=== PATIENT | male | born 1990 | race Caucasian/White ===

== ENCOUNTER 2018-02-15 08:51 | Emergency (ER) | payer MEDICAID, MEDICARE ==
[2018-02-15 09:11] VITALS: BP 130/75
--- NOTE | 2018-02-15 09:40 | RAD ---
INDICATION: Posterior RIGHT elbow pain and swelling post fall yesterday. COMPARISON: No relevant prior exams available on the [facility] for comparison. TECHNIQUE: AP, lateral, and oblique views RIGHT elbow. REPORT: Displaced fat pads indicating joint effusion. Mildly comminuted and impacted radial head fracture involving approximate 50% of the articular surface with only mild articular surface discontinuity and incongruity. Normal articular alignment. Mild radial and dorsal soft tissue swelling. IMPRESSION: #. Minimally impacted intra-articular fracture of the radial head with associated joint effusion.
--- NOTE | 2018-02-15 10:09 | UC ---
Elbow Pain - HPI Summary HPI Summary: RIGHT ELBOW PAIN X 1 DAY S/P FALL ON HIS RIGHT ELBOW ONE DAY + PAIN AND SWELLING OF ELBOW, DIFFICULTY MOVING HIS ELBOW - History of Current Complaint Chief Complaint: UCUpperExtremity Stated Complaint: RIGHT ELBOW INJURY Time Seen by Provider: 02/15/18 09:13 Hx Obtained From: Patient, Family/Skein Yarn Dyer Mechanism of Injury: S/P FALL ON HIS RIGHT ELBOW Onset/Duration: Days - 1 Severity Initially: Moderate Severity Currently: Moderate Pain Intensity: 10 Pain Scale Used: 0-10 Numeric Location Of Pain: Is Discrete @ - RIGHT ELBOW Character: Throbbing Aggravating Factor(s): Movement Alleviating Factor(s): Rest Associated Signs And Symptoms: Positive: Swelling, Weakness. Negative: Numbness /Tingling - Allergies/Home Medications Allergies/Adverse Reactions: Allergies Allergy/AdvReac Type Severity Reaction Status Date / Time No Known Allergies Allergy Verified 02/15/18 09:05 Home Medications: Home Medications Ibuprofen TAB* [Advil TAB*] 600 mg PO Q6H PRN 02/15/18 [History Confirmed ] PMH/Surg Hx/FS Hx/Imm Hx - Additional Past Medical History Additional PMH: HX OF CP Previously Healthy: Yes - Surgical History Surgical History: Yes Surgery Procedure, Year, and Place: R Leg. tendons stretched - Family History Known Family History: Negative: Diabetes - Social History Alcohol Use: None Substance Use Type: None Smoking Status (MU): Never Smoked Tobacco Review of Systems Constitutional: Negative Skin: Negative Eyes: Negative ENT: Negative Is Patient Immunocompromised?: No All Other Systems Reviewed And Are Negative: Yes Physical Exam Triage Information Reviewed: Yes Appearance: Well-Appearing, No Pain Distress, Well-Nourished Vital Signs: Initial Vital Signs Temp 98 F 02/15/18 09:06 Pulse 79 02/15/18 09:06 Resp 17 02/15/18 09:06 BP 130/75 02/15/18 09:06 Pulse Ox 98 02/15/18 09:06 Vital Signs Reviewed: Yes Eyes: Positive: Conjunctiva Clear ENT: Positive: Normal ENT inspection, Hearing grossly normal, Pharynx normal Neck: Positive: Supple, Nontender, No Lymphadenopathy Respiratory: Positive: Chest non-tender, Lungs clear, Normal breath sounds Cardiovascular: Positive: RRR, No Murmur, Pulses Normal Musculoskeletal: Positive: Other: - RIGHT ELBOW : + MILD EFFUSION , TENDERNESS LATERAL ELBOW, LIMITED ROM ON FLEXION , LIMITED STRENGTH Elbow Pain Course/Dx - Differential Dx/Diagnosis Provider Diagnoses: FRACUTE RIGHT RADIAL HEAD Discharge - Sign-Out/Discharge Documenting (check all that apply): Patient Departure - Discharge Plan Condition: Stable Disposition: HOME Patient Education Materials: Elbow Fracture (ED) Referrals: Manas Machado MD [Medical Doctor] - As Soon As Possible Krista Roldan MD [Primary Care Provider] - - Billing Disposition and Condition Condition: STABLE Disposition: Home
== END 2018-02-15 09:51 | disposition home or self-care (01) ==
LOC: UCCORT 08:51
DX: S52.121A Displaced fracture of head of right radius, initial encounter for closed fracture (principal); W19.XXXA Unspecified fall, initial encounter; Y93.9 Activity, unspecified; Y92.9 Unspecified place or not applicable
CPT/HCPCS: 99202; G0463